=== PATIENT | male | born 1955 | race Caucasian/White ===

== ENCOUNTER 2020-06-12 08:48 | Day surgery (SDC) | payer MEDICARE ==
[2020-06-07 11:44] LABS: INTERNATIONAL RATION (INR) 0.92; PARTIAL THROMBOPLASTIN TIME 30.4 SEC (23.5-35.8); PROTHROMBIN TIME 12.6 SEC (11.4-15.4)
[2020-06-07 11:47] LABS: APPEARANCE,URINE CLEAR; BILIRUBIN,URINE NEGATIVE (NEGATIVE); COLOR,URINE YELLOW; GLUCOSE, URINE NEGATIVE (NEGATIVE); KETONES,URINE NEGATIVE (NEGATIVE); LEUKOCYTE ESTERASE,URINE NEGATIVE (NEGATIVE); NITRITE,URINE NEGATIVE (NEGATIVE); PROTEIN,URINE NEGATIVE (NEGATIVE); URINE SPECIFIC GRAVITY 1.005; UROBILINOGEN,URINE NEGATIVE mg/dL (<2.0)
--- NOTE | 2020-06-07 12:07 | RADIOLOGY REPORT (SQ) ---
EXAM DESCRIPTION: CHEST 2 VIEWS IMAGES COMPLETED DATE/TIME: 06/07/2020 11:51 am REASON FOR STUDY: PRE OP TESTING COMPARISON: None. EXAM PARAMETERS: NUMBER OF VIEWS: two views TECHNIQUE: Digital Frontal and Lateral radiographic views of the chest acquired. RADIATION DOSE: NA LIMITATIONS: none FINDINGS: LUNGS AND PLEURA: No opacities, masses or pneumothorax. No pleural effusion. MEDIASTINUM AND HILAR STRUCTURES: No masses or contour abnormalities. HEART AND VASCULAR STRUCTURES: Heart normal size. No evidence for failure. BONES: No acute findings. HARDWARE: None in the chest. OTHER: Postsurgical changes in the cervical spine. IMPRESSION: NO ACUTE RADIOGRAPHIC FINDING IN THE CHEST. TECHNICAL DOCUMENTATION: JOB ID: [id number] 2010 [employer]- All Rights Reserved Reading location - IP/workstation name: [email or web address]
[2020-06-07 13:17] LABS: HEMATOCRIT 44.2 % (37.9-51.0); HEMOGLOBIN 14.8 g/dL (13.5-17.0); MEAN CORPUSCULAR HEMOGLOBIN 31.5 pg (27.0-33.4); MEAN CORPUSCULAR HGB CONC 33.4 g/dL (32.0-36.0); MEAN CORPUSCULAR VOLUME 94 fl (80-97); PLATELET COUNT 283 10^3/uL (150-450); RED BLOOD COUNT 4.69 10^6/uL (4.35-5.55); RED CELL DISTRIBUTION WIDTH 14.6 % (11.5-14.0)
[2020-06-07 13:39] LABS: ANION GAP 9 (5-19); BLOOD UREA NITROGEN 5 mg/dL (7-20); CALCIUM 9.1 mg/dL (8.4-10.2); CARBON DIOXIDE 26 mmol/L (22-30); CHLORIDE 102 mmol/L (98-107); GLUCOSE 113 mg/dL (75-110)
[2020-06-07 14:20] LABS: ABSOLUTE LYMPHOCYTES# (MANUAL) 2.9 10^3/uL (0.5-4.7); ABSOLUTE MONOCYTES # (MANUAL) 0.9 10^3/uL (0.1-1.4); BASOPHILS % (MANUAL) 0 % (0-2); EOSINOPHILS % (MANUAL) 0 % (0-6); LYMPHOCYTES % (MANUAL) 36 % (13-45); MONOCYTES % (MANUAL) 11 % (3-13); SEGMENTED NEUTROPHILS % (MAN) 53 % (42-78); TOTAL CELLS COUNTED 100
[2020-06-07 14:24] LABS: ANISOCYTOSIS 1+; PLATELET COMMENT ADEQUATE
--- NOTE | 2020-06-08 13:24 | EKG REPORT ---
SEVERITY:- BORDERLINE ECG - SINUS RHYTHM BORDERLINE R WAVE PROGRESSION, ANTERIOR LEADS : Confirmed by: Cole Villatoro 08-Jun-2020 13:23:19
[~2020-06-12 08:48] MED LIST: CEFAZOLIN 1 GM/D5W RTU 1 GM/50 ML RTUPB IV PRN; LACTATED RINGERS 1000 ML IV PRN; LIDOCAINE 0.5% INJ-PF (5 MG/ML) 50 ML SDV SUBCUT PRN
[2020-06-12] MEDS ORDERED: CEFAZOLIN 1 GM/D5W RTU 1 GM/50 ML RTUPB IV ONE ×2 (09:05→14:30)
[2020-06-12] MEDS ORDERED: MIDAZOLAM 2 MG/2 ML INJ ONE (10:07)
[2020-06-12] MEDS ORDERED: KETOROLAC TROMETHAMINE 60 MG/2 ML SDV ONE (10:07)
[2020-06-12] MEDS ORDERED: FENTANYL CITRATE INJ/PF 100 MCG/2 ML AMPUL ONE (10:07)
[2020-06-12] MEDS ORDERED: PROPOFOL INJ 200 MG/20 ML VIAL IV ONE (10:08)
[2020-06-12] MEDS ORDERED: ONDANSETRON HCL INJ/PF 4 MG/2 ML SDV ONE (10:08)
[2020-06-12] MEDS ORDERED: DEXAMETHASONE SOD PHOSPHATE INJ 4 MG/1 ML VIAL ONE (10:08)
[2020-06-12] MEDS ORDERED: METOCLOPRAMIDE HCL INJ/PF 10 MG/2 ML SDV ONE (10:22)
[2020-06-12] MEDS ORDERED: METOPROLOL TARTRATE PF/INJ 5 MG/5 ML SDV IV ONE (10:22)
[2020-06-12] MEDS ORDERED: LIDOCAINE 1% INJ-PF (10 MG/ML) 30 ML SDV ONE (11:34)
[2020-06-12] MEDS ORDERED: TRIAMCINOLONE ACETONIDE INJ 40 MG/1 ML VIAL ONE (11:35)
[2020-06-12] MEDS ORDERED: SODIUM BICARBONATE 8.4% INJ 50 MEQ/50 ML DISP.SYRIN ONE (12:03)
[2020-06-12] MEDS ORDERED: DIPHENHYDRAMINE HCL 50 MG/ML VIAL IV PRN (12:43)
[2020-06-12] MEDS ORDERED: MEPERIDINE HCL/PF INJ 25 MG/1 ML DISP.SYRIN IV PRN (12:43)
[2020-06-12] MEDS ORDERED: ONDANSETRON HCL INJ/PF 4 MG/2 ML SDV IV PRN ×2 (12:43→14:02)
[2020-06-12] MEDS ORDERED: PROMETHAZINE HCL INJ 25 MG/1 ML VIAL IV PRN (12:43)
[2020-06-12] MEDS ORDERED: FENTANYL CITRATE INJ/PF 100 MCG/2 ML AMPUL IV PRN ×3 (12:43)
--- NOTE | 2020-06-12 13:11 | Operative Report ---
Operative Report DATE OF SURGERY: 06/12/20 PREOPERATIVE DIAGNOSIS: Lumbar spinal stenosis with neurogenic claudication POSTOPERATIVE DIAGNOSIS: Same OPERATION: Minimally invasive lumbar decompression at L3-L4 ANESTHESIA: Moderate Sedation TISSUE REMOVED OR ALTERED: None COMPLICATIONS: None ESTIMATED BLOOD LOSS: None INTRAOPERATIVE FINDINGS: Improved epiduography s/p procedure at L3/4. PROCEDURE: Informed consent was obtained with the patient and all risks and benefits were discussed in detail these include but are not limited to bleeding bruising infection injury to nerves arteries veins loss of bowel or bladder function paralysis and potentially even . Once informed consent was obtained the patient was accompanied to the procedural suite and placed in prone position. All pressure points were checked and padded. 1 g of Ancef was administered perioperatively. A timeout procedure was performed as per [facility] standards. Entered ASA lines and monitors were applied. Moderate sedation was administered. The patient was prepped and draped in sterile fashion using chlorhexidine gluconate solution and an Ioban drape. A C-arm was also draped into the field in sterile fashion. Using AP fluoroscopy the L3-L4 interspace was identified. Skin was anesthetized using 1% buffered lidocaine and a 25-gauge needle. Subsequently a 16-gauge Touhy was advanced under intermittent AP and oblique angulation fluoroscopic guidance to the L3-L4 interspace. Loss of resistance obtained to normal saline. At this point Omnipaque 180 was injected demonstrating epidural spread in the posterior epidural space. This juncture the skin overlying the planned trocar insertion site was anesthetized using a 25-gauge needle and 1% buffered lidocaine. The Trocar provided by the [employer] [facility] was advanced under intermittent AP and oblique fluoroscopic guidance to the inferior lamina of L4. Using contralateral oblique imaging the Trocar placement was confirmed. The stylet was removed and a bone rongeur inserted through the trocar after the stabilizing device was applied along with a 15 mm depth gauge. The bone rongeur was used to take bites of both the inferior lamina of L3 and the superior lamina of L4. After adequate tissue was removed the bone rongeur was removed and a tissue sculptor was advanced through the trocar. Subsequently ligamentum flavum was removed. Improvement in flow of epidural contrast was noted at this point. Attention was then turned to the opposite side in a right paramedian approach where the procedure was performed in identical fashion. The Trocars were removed the skin cleansed and Steri-Strips were placed along with dressings. 80mg of Kenalog was injected through the Touhy epidural needle prior to its removal. The patient returned to the PACU in stable condition and will be discharged home. He will follow up in 2 days.
[2020-06-12] MEDS ORDERED: CEFAZOLIN INJ 1 GM VIAL ONE (13:20)
[2020-06-12] MEDS ORDERED: OXYCODONE HCL IR 5 MG TABLET PO PRN (14:02)
--- NOTE | 2020-06-12 14:03 | RADIOLOGY REPORT (SQ) ---
EXAM DESCRIPTION: NO CHG FLUORO; L SPINE 2 VIEWS IMAGES COMPLETED DATE/TIME: 06/12/2020 1:42 pm REASON FOR STUDY: MINIMALLY INVASIVE LUMBAR DECOMPRESSION ASSISTED WITH FLUORO IN OR COMPARISON: None. FLUOROSCOPY TIME: 6 minutes 10 Images saved to PACS LIMITATIONS: None. PROCEDURE: Lumbar decompression assisted with fluoro FINDINGS: Images from fluoro document the procedure. IMPRESSION: Lumbar decompression assisted with fluoro. Refer to operative note for further informat ion. COMMENT: PQRS 6045F: Fluoroscopy time of the procedure is documented in the report. TECHNICAL DOCUMENTATION: JOB ID: [id number] 2010 [employer]- All Rights Reserved Reading location - IP/workstation name: [email or web address]
--- NOTE | 2020-06-12 14:03 | RADIOLOGY REPORT (SQ) ---
EXAM DESCRIPTION: NO CHG FLUORO; L SPINE 2 VIEWS IMAGES COMPLETED DATE/TIME: 06/12/2020 1:42 pm REASON FOR STUDY: MINIMALLY INVASIVE LUMBAR DECOMPRESSION ASSISTED WITH FLUORO IN OR COMPARISON: None. FLUOROSCOPY TIME: 6 minutes 10 Images saved to PACS LIMITATIONS: None. PROCEDURE: Lumbar decompression assisted with fluoro FINDINGS: Images from fluoro document the procedure. IMPRESSION: Lumbar decompression assisted with fluoro. Refer to operative note for further informat ion. COMMENT: PQRS 6045F: Fluoroscopy time of the procedure is documented in the report. TECHNICAL DOCUMENTATION: JOB ID: [id number] 2010 [employer]- All Rights Reserved Reading location - IP/workstation name: [email or web address]
[2020-06-12] MEDS ORDERED: OXYCODONE HCL SR 10 MG TABLET PO ONE (14:18)
[2020-06-12 15:11] VITALS: BP 161/102
== END 2020-06-12 15:25 | disposition home or self-care (01) ==
LOC: OROUT 08:48
PROVIDERS: ATTEND Pain Medicine Interventional Pain Medicine
DX: M48.062 Spinal stenosis, lumbar region with neurogenic claudication (principal); Z00.6 Encounter for examination for normal comparison and control in clinical research program; I10 Essential (primary) hypertension; F17.210 Nicotine dependence, cigarettes, uncomplicated; I25.2 Old myocardial infarction; Z85.72 Personal history of non-Hodgkin lymphomas; Z20.828 Contact with and (suspected) exposure to other viral communicable diseases; Z92.21 Personal history of antineoplastic chemotherapy; Z79.899 Other long term (current) drug therapy; Z95.1 Presence of aortocoronary bypass graft; Z79.01 Long term (current) use of anticoagulants
CPT/HCPCS: 0275T; 93005; 36415; 85025; 85610; 85730; 80048; 81001; 71046; 72100; 93010; 00630; C1889; Q9966; U0003; J2250; J0690 ×2; J1100; J1885; J3010; J3490 ×3; J2765; A9270; J2405; J3301; J2704; C9803; 630; 87635